=== PATIENT | female | born 1985 | race Caucasian/White ===

== ENCOUNTER 2016-10-11 23:37 | Emergency (ER) | payer OTHER ==
--- NOTE | 2016-10-12 00:08 | PDOC ---
History of Present Illness - General Stated Complaint: PAIN,ACUTE Time Seen by Provider: 10/11/16 23:45 History Source: Patient Exam Limitations: No Limitations - History of Present Illness Initial Comments: 10/12/16 00:09 31-year-old female/11 weeks gestation with no medical history presents to the emergency department complaining of a sore throat since yesterday. Pain described as 6/10 sore nonradiating intermittent discomfort. Patient denies difficulty swallowing or pain when swallowing. She denies fever until arrival to the ER but denies chills, nausea/vomiting, headaches, dizziness, lightheadedness, facial pain, neck/back pains, chest pain, shortness of breath. Patient denies any other complaints. +sick contact with strep throat Timing/Duration: 24 hours Associated Symptoms: reports: denies symptoms Aspirin Received prior to arrival: Yes: no aspirin today Past History - Past Medical History Allergies/Adverse Reactions: Allergies Allergy/AdvReac Type Severity Reaction Status Date / Time No Known Allergies Allergy Verified 10/12/16 00:16 Home Medications: Ambulatory Orders Cefdinir [Omnicef -] 300 mg PO BID #14 capsule 07/13/15 - Psycho/Social/Smoking Cessation Hx Suicidal Ideation: No Smoking History: Never smoked Review of Systems - Review of Systems Able to Perform ROS?: Yes Comments:: 10/12/16 00:08 CONSTITUTIONAL: Absent: fever, chills, diaphoresis, generalized weakness, malaise, loss of appetite HEENT: +throat pain, Absent: rhinorrhea, nasal congestion, throat swelling, difficulty swallowing, mouth swelling, ear pain, eye pain, visual Changes CARDIOVASCULAR: Absent: chest pain, loss of consciousness, palpitations, irregular heart rate, peripheral edema RESPIRATORY: Absent: cough, shortness of breath, dyspnea with exertion, orthopnea, wheezing, stridor, hemoptysis GASTROINTESTINAL: Absent: abdominal pain, abdominal distension, nausea, vomiting, diarrhea, constipation, melena, hematochezia GENITOURINARY: Absent: dysuria, frequency, urgency, hesitancy, hematuria, flank pain, genital pain SKIN: Absent: rash, itching, pallor Is the patient limited [place] proficient: No *Physical Exam - Physical Exam Comments: 10/12/16 00:08 GENERAL: Well developed, well nourished. Awake and alert. No acute distress. HEENT: +tonsilar exudate Normocephalic, atraumatic. PERRLA, EOMI. No conjunctival pallor. Sclera are non- icteric. Moist mucous membranes. Oropharynx is clear. NECK: Supple. Full ROM. No JVD. Carotid pulses 2+ and symmetric, without bruits. No thyromegaly. No lymphadenopathy. CARDIOVASCULAR: Regular rate and rhythm. No murmurs, rubs, or gallops. Distal pulses are 2+ and symmetric. PULMONARY: No evidence of respiratory distress. Lungs clear to auscultation bilaterally. No wheezing, rales or rhonchi. ABDOMINAL: Soft. Non-tender. Non-distended. No rebound or guarding. No organomegaly. Normoactive bowel sounds. *DC/Admit/Observation/Transfer Diagnosis at time of Disposition: Strep pharyngitis - Discharge Dispostion Disposition: HOME Condition at time of disposition: Stable Admit: No - Referrals Referrals: Nolan García MD [Staff Physician] - - Patient Instructions Printed Discharge Instructions: DI for Strep Throat Additional Instructions: Tylenol as needed for pain/fever Follow up with the ENT physician/Dr. García or your physician Return to the ER for severe/persistent/worsening symptoms
[2016-10-12 00:19] VITALS: BP 123/85; PULSE 105; TEMP 99.4; BMI 37.8
[2016-10-12] MEDS ORDERED: AMOXICILLIN 500 MG CAPSULE (FP) PO ONE ×2 (01:17→01:27)
--- NOTE | 2016-10-12 01:18 | PDOC ---
*Physical Exam - Vital Signs Last Vital Signs Temp Pulse Resp BP Pulse Ox 99.4 F 105 H 14 123/85 100 10/12/16 00:17 10/12/16 00:17 10/12/16 00:17 10/12/16 00:17 10/12/16 00:17 ED Treatment Course - ADDITIONAL ORDERS Additional order review: 10/11/16 23:42 Group A Strep Rapid Antigen - Final Throat Medical Decision Making - Medical Decision Making 10/12/16 01:17 seen with GARRY Healthy 31-year-old female 11 weeks gestation presents with sore throat, odynophagia, low-grade fever. History of strep pharyngitis, family member currently has strep pharyngitis. Tolerating liquids, hydrating well. Vitals as noted, mild tachycardia Mild discomfort secondary to throat pain, otherwise speaking full sentences, tolerating secretions, no stridor Bilaterally inflamed/enlarged tonsils with exudates, uvula midline Trachea midline, lungs are clear 31-year-old female at 11 weeks gestation with clinical strep pharyngitis. Culture sent, rapid antigen negative but meets criteria clinically for treatment Course of amoxicillin, Tylenol for pain, stressed importance of hydration Understands return criteria *DC/Admit/Observation/Transfer Diagnosis at time of Disposition: Strep pharyngitis - Discharge Dispostion Disposition: HOME Condition at time of disposition: Stable - Prescriptions Prescriptions: Amoxicillin - [Amoxicillin 875mg Tablet -] 875 mg PO BID #14 tab - Referrals Referrals: Nolan García MD [Staff Physician] - - Patient Instructions Printed Discharge Instructions: DI for Strep Throat Additional Instructions: Tylenol as needed for pain/fever Follow up with the ENT physician/Dr. García or your physician Return to the ER for severe/persistent/worsening symptoms - Post Discharge Activity Work/School Note: Back to Work
[2016-10-12] MEDS ORDERED: AMOXICILLIN 500 MG CAPSULE (FP) ONE (01:21)
== END 2016-10-12 01:36 | disposition home or self-care (01) ==
LOC: JER 23:37
DX: O26.891 Other specified pregnancy related conditions, first trimester (principal); J02.0 Streptococcal pharyngitis; Z3A.11 11 weeks gestation of pregnancy
CPT/HCPCS: 87070; 87430; 99282-25